=== PATIENT | male | born 1950 | race Caucasian/White ===

== ENCOUNTER 2018-09-27 11:37 | Inpatient (IN) | payer OTHER | END 2018-09-29 17:15 | disposition home or self-care (01) | LOC: EDH 11:37 → 3CH 09-28 19:14 → EDHIP 16:30 ==

== ENCOUNTER 2019-05-21 18:07 | Inpatient (IN) | payer OTHER ==
[~2019-05-21 18:07] MED LIST: ATOR40TA71 PO; CHLO200T10 PO; DIVA500T52 PO; FISH1CAP63 PO; LEVO25TA54 PO; LISI-613 PO; LORA-192 PO; LORA1TAB3 PO; METO25TA6 PO; PANT40TA25 PO; QUET400T12 PO; RIVA20TA PO; TAMS0.4C32 PO; TRAZ-221 PO
[2019-05-21 18:35] LABS: BASOPHILS % (AUTO) 0.7 % (0.0-5.0); EOSINOPHILS % (AUTO) 1.5 % (0.0-8.0); HEMATOCRIT 38.2 % (42-54); MEAN CORPUSCULAR HEMOGLOBIN 32.7 pg (27.0-33.0); MEAN CORPUSCULAR HGB CONC 34.1 g/dL (32.0-36.0); MONOCYTES % (AUTO) 13.2 % (3.0-13.0); NEUTROPHILS % (AUTO) 64.6 % (40.0-77.0); NUCLEATED RED BLOOD CELLS 0.1 % (0.0-0.19); PLATELET COUNT (AUTO) 115 K/uL (130-400); RED BLOOD CELL COUNT(AUTO) 3.98 MIL/uL (4.50-6.20); RED CELL DISTRIBUTION WIDTH 13.5 % (11.0-15.5); WHITE BLOOD COUNT (AUTO) 5.9 K/uL (4.8-10.8)
[2019-05-21 18:42] LABS: CREATININE 1.3 mg/dL (0.5-1.5); POTASSIUM 3.9 mmol/L (3.5-5.1)
[2019-05-21 18:44] LABS: INR 1.05 (0.85-1.15); PARTIAL THROMBOPLASTIN TIME 28.6 SEC (26.3-35.5)
[2019-05-21 18:47] LABS: ALBUMIN 3.7 g/dL (3.5-5.0); BILIRUBIN,TOTAL 0.5 mg/dL (0.2-1.0)
[2019-05-21 18:55] LABS: B-TYPE NATRIURETIC PEPTIDE 14 pg/mL (0-100)
[2019-05-21 18:57] LABS: PLATELET MORPHOLOGY COMMENT SLIGHTLY DECREASED
[2019-05-21] MEDS ORDERED: ACETAMINOPHEN 325 MG TAB PO PRN (21:00)
[2019-05-21] MEDS ORDERED: ONDANSETRON 4 MG TABLET PO PRN (21:00)
[2019-05-21 22:00] LABS: APPEARANCE,URINE Clear (CLEAR); BILIRUBIN,URINE Negative (NEGATIVE); COLOR,URINE Yellow (YELLOW); GLUCOSE, URINE (UA) Negative (NEGATIVE); KETONES,URINE Negative (NEGATIVE); LEUKOCYTE ESTERASE ,URINE Negative (NEGATIVE); NITRATE,URINE Negative (NEGATIVE); OCCULT BLOOD,URINE Negative (NEGATIVE); PROTEIN,URINE Negative (NEGATIVE)
[2019-05-22 02:39] LABS: CREATINE KINASE, TOTAL 208 U/L (21-232); MYOGLOBIN 74 ng/mL (10-92); TROPONIN I < 0.04 ng/mL (0.00-0.06)
[2019-05-22 07:00] LABS: BASOPHILS % (AUTO) 0.9 % (0.0-5.0); EOSINOPHILS % (AUTO) 2.3 % (0.0-8.0); HEMATOCRIT 39.3 % (42-54); LYMPHOCYTES % (AUTO) 22.7 % (21.0-51.0); MEAN CORPUSCULAR HEMOGLOBIN 32.8 pg (27.0-33.0); MEAN CORPUSCULAR HGB CONC 34.4 g/dL (32.0-36.0); MEAN CORPUSCULAR VOLUME 95.3 fL (79-99); MONOCYTES % (AUTO) 13.6 % (3.0-13.0); NEUTROPHILS % (AUTO) 60.5 % (40.0-77.0); PLATELET COUNT (AUTO) 117 K/uL (130-400); RED BLOOD CELL COUNT(AUTO) 4.12 MIL/uL (4.50-6.20); RED CELL DISTRIBUTION WIDTH 13.5 % (11.0-15.5); WHITE BLOOD COUNT (AUTO) 5.1 K/uL (4.8-10.8)
[2019-05-22 07:07] LABS: CREATININE 1.2 mg/dL (0.5-1.5); POTASSIUM 4.4 mmol/L (3.5-5.1)
[2019-05-22 07:14] LABS: ALBUMIN 3.8 g/dL (3.5-5.0); BILIRUBIN,TOTAL 0.6 mg/dL (0.2-1.0); MAGNESIUM 2.1 mg/dL (1.80-2.40); TOTAL PROTEIN, SERUM 7.3 g/dL (6.0-8.3)
--- NOTE | 2019-05-22 11:24 | NUR ---
DCP: HOME SW met with pt who states he lives alone, daughter Ирина Garridoz [phone] is er contact. Pt reports he is independent of all ADLS, has provider 4hrs daily for assist with meal prep, home management, med box prep, uses walker prn, no HH. Pt states insurance covers transport to MD appts. Denies dc needs. Plan is home at sc Addendum: 05/22/19 at 1138 by KRISTEN SOTO SS Amended: Links added.
--- NOTE | 2019-05-22 11:51 | NUR ---
TRIGGER RECEIVED. Pt WITH POSSIBLE CVA DIAGNOSIS. NIHSS SCORE OF 0 AT THIS TIME. PT EATING INDEPENDENTLY AND COMMUNICATING WANTS AND NEEDS. NO CONCERNS AT THIS TIME. Pt WITH NO OVERT S/S OF ASPIRATION AT THIS TIME. SKILLED SPEECH THERAPY IS NOT WARRANTED AT THIS TIME. Addendum: 05/22/19 at 1155 by NIKKI CRANE, [facility] Amended: Links added.
[2019-05-22 19:16] LABS: CREATINE KINASE, TOTAL 255 U/L (21-232); MYOGLOBIN 63 ng/mL (10-92); TROPONIN I < 0.04 ng/mL (0.00-0.06)
== END 2019-05-22 19:19 | disposition left against medical advice (07) | DRG 312 ==
LOC: EDH 18:07 → EDHIP 20:10
PROVIDERS: ADMIT Internal Medicine Infectious Disease; ATTEND Internal Medicine Infectious Disease
DX: I95.2 Hypotension due to drugs (principal); R42 Dizziness and giddiness; Z53.29 Procedure and treatment not carried out because of patient's decision for other reasons; E66.9 Obesity, unspecified; I10 Essential (primary) hypertension; F20.9 Schizophrenia, unspecified; F31.9 Bipolar disorder, unspecified; I48.0 Paroxysmal atrial fibrillation; E03.9 Hypothyroidism, unspecified; E78.5 Hyperlipidemia, unspecified; Z79.899 Other long term (current) drug therapy; Z88.0 Allergy status to penicillin; Z86.73 Personal history of transient ischemic attack (TIA), and cerebral infarction without residual deficits
CPT/HCPCS: 36415; 70450; 70551; 71045; 80053; 81003; 82550; 83690; 83735; 83874; 83880; 84443; 84484; 85025; 85610; 85730; 87804; 93005; 99291; G0378

== ENCOUNTER 2019-07-23 18:07 | Inpatient (IN) | payer OTHER ==
[~2019-07-23 18:07] MED LIST changes: -TRAZ-221 PO; +TRAZ-258 PO
[2019-07-23 18:48] LABS: BASOPHILS % (AUTO) 0.5 % (0.0-5.0); EOSINOPHILS % (AUTO) 1.1 % (0.0-8.0); HEMATOCRIT 38.1 % (42-54); LYMPHOCYTES % (AUTO) 18.3 % (21.0-51.0); MEAN CORPUSCULAR HEMOGLOBIN 32.2 pg (27.0-33.0); MEAN CORPUSCULAR HGB CONC 33.6 g/dL (32.0-36.0); MEAN CORPUSCULAR VOLUME 95.7 fL (79-99); NEUTROPHILS % (AUTO) 68.1 % (40.0-77.0); PLATELET COUNT (AUTO) 138 K/uL (130-400); RED BLOOD CELL COUNT(AUTO) 3.98 MIL/uL (4.50-6.20); RED CELL DISTRIBUTION WIDTH 13.5 % (11.0-15.5); WHITE BLOOD COUNT (AUTO) 6.2 K/uL (4.8-10.8)
[2019-07-23 19:06] LABS: CARBON DIOXIDE 26 mmol/L (21-32); CHLORIDE 103 mmol/L (101-111); CREATININE 1.9 mg/dL (0.5-1.5); GLOMERULAR FILTR. RATE CALC 37 mL/min (>60); GLUCOSE,RANDOM 105 mg/dL (70-105); POTASSIUM 4.4 mmol/L (3.5-5.1); SODIUM SERUM 140 mmol/L (136-145); UREA NITROGEN, BLOOD 27 mg/dL (7-18)
[2019-07-23] MEDS ORDERED: SODIUM CHLORIDE 0.9% 500ML 500 ML IV ONE (19:08)
[2019-07-23 19:13] LABS: ALANINE AMINOTRANSFERASE 35 U/L (12-78); ASPARTATE AMINOTRANSFERASE 36 U/L (10-37); BILIRUBIN,TOTAL 0.5 mg/dL (0.2-1.0); TOTAL PROTEIN, SERUM 7.4 g/dL (6.0-8.3)
[2019-07-23] MEDS ORDERED: DILTIAZEM HCL 125 MG/25 ML VIAL IV ONE (19:14)
[2019-07-23] MEDS ORDERED: SODIUM CHLORIDE 0.9% 100 ML IV ONE (19:14)
[2019-07-23 19:15] LABS: ACETAMINOPHEN < 1 mcg/mL (10-29)
[2019-07-23 19:20] LABS: INR 1.2 (0.85-1.15); PROTHROMBIN TIME 12.5 SEC (9.6-11.6)
[2019-07-23 19:35] LABS: ALCOHOL, BLOOD < 3 mg/dL (0-10)
[2019-07-23 19:37] LABS: SALICYLATE < 2.8 mg/dL (2.8-20.0)
[2019-07-23 19:55] LABS: APPEARANCE,URINE Clear (CLEAR); BILIRUBIN,URINE Negative (NEGATIVE); COLOR,URINE Yellow (YELLOW); GLUCOSE, URINE (UA) Negative (NEGATIVE); KETONES,URINE Negative (NEGATIVE); LEUKOCYTE ESTERASE ,URINE Negative (NEGATIVE); NITRATE,URINE Negative (NEGATIVE); OCCULT BLOOD,URINE Negative (NEGATIVE); PH,URINE 5.5 (5.0-8.0); PROTEIN,URINE Negative (NEGATIVE)
[2019-07-23 20:03] LABS: AMPHET/METH SCREEN,URINE NEGATIVE (NEGATIVE); BARBITURATE SCREEN, URINE NEGATIVE (NEGATIVE); BENZODIAZEPINES SCREEN,URINE NEGATIVE (NEGATIVE); CANNABINOID SCREEN,URINE NEGATIVE (NEGATIVE); COCAINE SCREEN,URINE NEGATIVE (NEGATIVE); OPIATE SCREEN,URINE NEGATIVE (NEGATIVE); PHENCYCLIDINE SCREEN,URINE NEGATIVE (NEGATIVE)
[2019-07-23] MEDS ORDERED: DILTIAZEM 125MG+100 ML NS 125 ML IV SCH (21:15)
[2019-07-24 04:58] LABS: BASOPHILS % (AUTO) 0.7 % (0.0-5.0); EOSINOPHILS % (AUTO) 2.7 % (0.0-8.0); HEMATOCRIT 38.6 % (42-54); LYMPHOCYTES % (AUTO) 30.7 % (21.0-51.0); MEAN CORPUSCULAR HEMOGLOBIN 32.1 pg (27.0-33.0); MEAN CORPUSCULAR HGB CONC 33.4 g/dL (32.0-36.0); MONOCYTES % (AUTO) 12.7 % (3.0-13.0); NEUTROPHILS % (AUTO) 52.3 % (40.0-77.0); PLATELET COUNT (AUTO) 124 K/uL (130-400); RED BLOOD CELL COUNT(AUTO) 4.02 MIL/uL (4.50-6.20); RED CELL DISTRIBUTION WIDTH 13.6 % (11.0-15.5); WHITE BLOOD COUNT (AUTO) 4.4 K/uL (4.8-10.8)
[2019-07-24 05:04] LABS: CREATININE 1.5 mg/dL (0.5-1.5)
[2019-07-24 05:09] LABS: ALBUMIN 3.9 g/dL (3.5-5.0); BILIRUBIN,TOTAL 0.6 mg/dL (0.2-1.0); TOTAL PROTEIN, SERUM 7.4 g/dL (6.0-8.3)
[2019-07-24 05:12] LABS: B-TYPE NATRIURETIC PEPTIDE 17 pg/mL (0-100)
== END 2019-07-24 10:29 | disposition left against medical advice (07) | DRG 310 ==
LOC: EDH 18:07 → EDHIP 20:27
PROVIDERS: ADMIT Internal Medicine Infectious Disease; ATTEND Internal Medicine Infectious Disease
DX: I48.3 Typical atrial flutter (principal); F31.9 Bipolar disorder, unspecified; E03.9 Hypothyroidism, unspecified; G20 Parkinson's disease; E78.00 Pure hypercholesterolemia, unspecified; I10 Essential (primary) hypertension; E11.9 Type 2 diabetes mellitus without complications; I25.10 Atherosclerotic heart disease of native coronary artery without angina pectoris; I95.9 Hypotension, unspecified; Z88.0 Allergy status to penicillin; Z85.46 Personal history of malignant neoplasm of prostate; Z53.29 Procedure and treatment not carried out because of patient's decision for other reasons
CPT/HCPCS: 36415; 71045; 80053; 80305; 81003; 82550; 83735; 83880; 84484; 85025; 85610; 85730; 93005; G0378; G0480; G0481; J3490; J7040

== ENCOUNTER 2019-12-04 13:59 | Inpatient (IN) | payer OTHER ==
[~2019-12-04] VITALS: Ht 185.4 cm; Wt 108.8 kg
[~2019-12-04 13:59] MED LIST changes: -PANT40TA25 PO; +PANT40TA54 PO
[2019-12-04] MEDS ORDERED: METOPROLOL TARTRATE 1 MG/ML 5ML VIAL IV ONE (14:27)
[2019-12-04] MEDS ORDERED: ASPIRIN 325 MG TABLET ONE (14:27)
[2019-12-04 14:43] LABS: BASOPHILS % (AUTO) 0.5 % (0.0-5.0); EOSINOPHILS % (AUTO) 0.1 % (0.0-8.0); HEMATOCRIT 42.8 % (42-54); LYMPHOCYTES % (AUTO) 11.5 % (21.0-51.0); MEAN CORPUSCULAR HEMOGLOBIN 32.7 pg (27.0-33.0); MEAN CORPUSCULAR HGB CONC 34.1 g/dL (32.0-36.0); MEAN CORPUSCULAR VOLUME 95.7 fL (79-99); MONOCYTES % (AUTO) 12.8 % (3.0-13.0); NEUTROPHILS % (AUTO) 74.6 % (40.0-77.0); PLATELET COUNT (AUTO) 158 K/uL (130-400); RED BLOOD CELL COUNT(AUTO) 4.47 MIL/uL (4.50-6.20); RED CELL DISTRIBUTION WIDTH 12.9 % (11.0-15.5); WHITE BLOOD COUNT (AUTO) 7.3 K/uL (4.8-10.8)
[2019-12-04 14:57] LABS: CREATININE 1.6 mg/dL (0.5-1.5); INR 1.03 (0.85-1.15); PARTIAL THROMBOPLASTIN TIME 29.1 SEC (26.3-35.5); POTASSIUM 4.2 mmol/L (3.5-5.1); PROTHROMBIN TIME 11.1 SEC (9.6-11.6)
[2019-12-04 15:12] LABS: B-TYPE NATRIURETIC PEPTIDE 106 pg/mL (0-100)
[2019-12-04 15:20] LABS: BILIRUBIN,TOTAL 1.1 mg/dL (0.2-1.0); TOTAL PROTEIN, SERUM 8.6 g/dL (6.0-8.3)
[2019-12-04] MEDS ORDERED: SODIUM CHLORIDE 0.9% 100 ML IV ONE (15:37)
[2019-12-04] MEDS ORDERED: DILTIAZEM HCL 5 MG/ML 10 ML VIAL IV ONE (15:38)
[2019-12-04] MEDS ORDERED: DILTIAZEM HCL 125 MG/25 ML VIAL IV ONE (15:38)
[2019-12-04] MEDS ORDERED: DILTIAZEM HCL 125 MG/25 ML 125 MG in SODIUM CHLORIDE 0.9% 100 ML IV SCH (18:15)
[2019-12-05 06:29] LABS: BASOPHILS % (AUTO) 0.6 % (0.0-5.0); EOSINOPHILS % (AUTO) 0.9 % (0.0-8.0); HEMATOCRIT 41.4 % (42-54); LYMPHOCYTES % (AUTO) 21.6 % (21.0-51.0); MEAN CORPUSCULAR HEMOGLOBIN 32.3 pg (27.0-33.0); MEAN CORPUSCULAR HGB CONC 33.3 g/dL (32.0-36.0); MONOCYTES % (AUTO) 13.2 % (3.0-13.0); NEUTROPHILS % (AUTO) 63.4 % (40.0-77.0); PLATELET COUNT (AUTO) 145 K/uL (130-400); RED BLOOD CELL COUNT(AUTO) 4.27 MIL/uL (4.50-6.20); RED CELL DISTRIBUTION WIDTH 13.1 % (11.0-15.5); WHITE BLOOD COUNT (AUTO) 6.6 K/uL (4.8-10.8)
[2019-12-05 06:44] LABS: CREATININE 1.3 mg/dL (0.5-1.5); MAGNESIUM 2.3 mg/dL (1.80-2.40)
[2019-12-05 08:43] LABS: THYROID STIMULATING HORMONE 1.5 uIU/mL (0.36-3.74)
--- NOTE | 2019-12-05 13:57 | NUR ---
DCP CM spoke to pt's daughter Shari Reddy [phone] discussed dc plans. Per daughter pt is mostly independent prior to admission, lives at home alone, sister Meredith Shelley lives close by. Pt has a provider 4hrs that is able to assist with meals, medications. Pt uses insurance for transportation. Denies any other equipments/services. Feels safe to go back home, sister Meredith able to assist with transportation as necessary. DC plan to home once stable. CM to cont to follow up.
[2019-12-05] MEDS ORDERED: MECLIZINE HCL 25 MG TABLET PO PRN (15:15)
[2019-12-05 15:45] VITALS: BP 157/64
--- NOTE | 2019-12-05 17:04 | NUR ---
HISTORY OF LEFT EYE SURGERY Addendum: 12/05/19 at 1709 by GLADYS FOX RN RN Amended: Links added.
[2019-12-05] MEDS: METOPROLOL TARTRATE 25 MG TAB PO SCH (17:20)
[2019-12-05 19:34] VITALS: BP 163/85
[2019-12-05] MEDS: DIVALPROEX SODIUM 250 MG TABLET.DR PO SCH (20:29)
[2019-12-05] MEDS: QUETIAPINE FUMARATE 100 MG TAB PO SCH (20:29)
[2019-12-05] MEDS: TRAZODONE HCL 100 MG TABLET PO SCH (20:29)
[2019-12-06 04:00] VITALS: BP 113/62
[2019-12-06] MEDS: LEVOTHYROXINE 25 MCG TABLET PO SCH (05:41)
[2019-12-06 08:00] VITALS: BP 118/55
[2019-12-06] MEDS: FUROSEMIDE 20 MG TABLET PO SCH (08:42)
[2019-12-06] MEDS: TAMSULOSIN HCL 0.4 MG CAP.ER.24H PO SCH (08:42)
[2019-12-06] MEDS: DIVALPROEX SODIUM 250 MG TABLET.DR PO SCH ×2 (08:42→20:40)
[2019-12-06] MEDS: RIVAROXABAN 20 MG TABLET PO SCH (08:43)
[2019-12-06] MEDS: METOPROLOL TARTRATE 25 MG TAB PO SCH ×2 (08:46→17:20)
[2019-12-06] MEDS: SILVER SULFADIAZINE CREAM 50 GM TP SCH (09:00)
--- NOTE | 2019-12-06 09:53 | NUR ---
SPOKE TO PT AT BEDSIDE -- ON RAMBLING AND INCOHERENT. STATES HIS MEDS ARE GIVEN TO HIM BY [facility]. HAS NOT SEEN A PSYCHIATRIST FOR MANY YESAR. STATES HIS SISTER LIVES IN [facility] BUT THEY DO NOT GET ALONG, AND SHE TELL HIM HE DOES NOT GET ANY PENSION.?? STATES THAT HE HAS NOT SEEN HIS DUAGHTER FOR ABOUT TWO YEARS, BUT TALKS TO HER AOBUT ONCE WEEKLY. CALL TO DR. MENJIVAR. ORDER FOR PSYCHIATRIST CONSULT AND IF RECOMMENDS REFERRAL TO [facility] [place] Addendum: 12/06/19 at 0956 by ED VALADEZ RN Amended: Links added.
[2019-12-06 12:00] VITALS: BP 104/86
[2019-12-06] MEDS: ATORVASTATIN CALCIUM 40 MG TABLET PO SCH (12:14)
--- NOTE | 2019-12-06 15:23 | NUR ---
1510 patient not able to sign IM letter, he is confused at this time and is on a 1:1 sitter. I tried calling sister Meredith Shelley at [phone] but no answer at this time. I will keep trying to reach sister to get telephone consent for IM Letter.
[2019-12-06 16:00] VITALS: BP 110/54
[2019-12-06 20:00] VITALS: BP 119/74
[2019-12-06] MEDS: TRAZODONE HCL 100 MG TABLET PO SCH (20:40)
[2019-12-06] MEDS: QUETIAPINE FUMARATE 100 MG TAB PO SCH (20:40)
[2019-12-06 23:47] VITALS: BP 117/62
[2019-12-07 04:00] VITALS: BP 109/58
--- NOTE | 2019-12-07 05:05 | NUR ---
PATIENT UPDATE Pt pending acceptance to [facility], face sheet faxed to the Unit as per request. Dr. Navarrete consulted during the daytime, message left, no response received. I called Dr. Navarrete last night on his cell phone, made him aware about the consult and the pending transfer to [facility] [place]. Stated that he will come see the patient in the am. Ammonia level and urine studies to be done as per the request of [facility] before transfer. Patient running normal sinus rhythm bet 55 to low 60's, no ectopies noted. Bipolar meds administered, pt slept better overnight, no complaints of pain.
[2019-12-07] MEDS: LEVOTHYROXINE 25 MCG TABLET PO SCH (05:40)
[2019-12-07 05:58] LABS: APPEARANCE,URINE Clear (CLEAR); BILIRUBIN,URINE Negative (NEGATIVE); COLOR,URINE Dark Yellow (YELLOW); GLUCOSE, URINE (UA) Negative (NEGATIVE); KETONES,URINE Negative (NEGATIVE); LEUKOCYTE ESTERASE ,URINE Negative (NEGATIVE); NITRATE,URINE Negative (NEGATIVE); OCCULT BLOOD,URINE Negative (NEGATIVE); PH,URINE 5.5 (5.0-8.0); PROTEIN,URINE Negative (NEGATIVE)
[2019-12-07 06:06] LABS: AMPHET/METH SCREEN,URINE NEGATIVE (NEGATIVE); BARBITURATE SCREEN, URINE NEGATIVE (NEGATIVE); BENZODIAZEPINES SCREEN,URINE NEGATIVE (NEGATIVE); CANNABINOID SCREEN,URINE NEGATIVE (NEGATIVE); COCAINE SCREEN,URINE NEGATIVE (NEGATIVE); OPIATE SCREEN,URINE NEGATIVE (NEGATIVE); PHENCYCLIDINE SCREEN,URINE NEGATIVE (NEGATIVE)
--- NOTE | 2019-12-07 07:30 | NUR ---
NOTE AAOX3. DENIES PAIN OR DISCOMFORT. CAME IN WITH A FIB RVR. HAS BEEN STABLE, NO DISTRESS OR CHEST PAIN. HE'S ON TELEMETRY MONITORING WITH RHYTHM CHANGED TO NSR OR SB. VS STABLE. HE IS ON XARELTO AND METOPROLOL. HE IS ON ONE TO ONE SITTER BECAUSE OF H/O BIPOLAR DISORDER AND PATIENT HAS BEEN RESTLESS AND WONDERING AROUND THE FELTON WITH VISITS INTO OTHER PATIENT'S ROOMS. ALSO REPORTS ALCOHOL ABUSE SO HE IS ON ETOH PROTOCOL.
[2019-12-07 07:57] VITALS: BP 124/72
[2019-12-07] MEDS: SILVER SULFADIAZINE CREAM 50 GM TP SCH (09:00)
[2019-12-07] MEDS: RIVAROXABAN 20 MG TABLET PO SCH (09:11)
[2019-12-07] MEDS: FUROSEMIDE 20 MG TABLET PO SCH (09:11)
[2019-12-07] MEDS: TAMSULOSIN HCL 0.4 MG CAP.ER.24H PO SCH (09:11)
[2019-12-07] MEDS: ATORVASTATIN CALCIUM 40 MG TABLET PO SCH (09:11)
[2019-12-07] MEDS: METOPROLOL TARTRATE 25 MG TAB PO SCH ×2 (09:12→21:24)
[2019-12-07] MEDS: DIVALPROEX SODIUM 250 MG TABLET.DR PO SCH ×2 (09:12→21:24)
[2019-12-07 11:32] VITALS: BP 111/63
--- NOTE | 2019-12-07 13:00 | NUR ---
NOTE DR WHITLOCK CAME TO SEE PATIENT A CONSULT. REFER TO CHART FOR DETAILS. CASE MANAGEMENT WORKING ON POSSIBLE TRANSFER TO INPATIENT BEHAVIORAL UNIT. SITTER REMAINS AT HIS SIDE. PATIENT REMAINS STABLE, NO DISTRESS.
--- NOTE | 2019-12-07 15:50 | NUR ---
cm note spoke to dr perez and updated that pt is out of network with [facility] sepedy laughlin and ok with referral to [facility] or [facility]. spoke to pt and in agreement to [facility] due to it is closer for him. referral faxed to [facility] pending approval. spoke to gilmar and received referral.
[2019-12-07 16:00] VITALS: BP 127/95
--- NOTE | 2019-12-07 16:29 | NUR ---
7517 spoke to patient's sister Meredith Shelley([phone]) Via telephone and received oral consent for IM Letter since patient is confused at this time. I faxed IM Letter to 1075 and placed in chart under consent tab.
[2019-12-07 19:30] VITALS: BP 133/65
[2019-12-07] MEDS: RISPERIDONE 1 MG TABLET PO SCH (21:25)
[2019-12-07] MEDS: TRAZODONE HCL 100 MG TABLET PO SCH (21:25)
[2019-12-07] MEDS: QUETIAPINE FUMARATE 100 MG TAB PO SCH (21:25)
[2019-12-07 23:56] VITALS: BP 122/61
--- NOTE | 2019-12-08 01:48 | NUR ---
PATIENT UPDATE Patient started on the new regimen started by Dr. Navarrete, pt had been sleeping since 2199. Vital signs stable. Was oriented x 1, not oriented to place and time, reoriented. Still having those arm tremors when both arms are extended, more on the rt than the left. Pt aware of the plan for him to get transferred to [facility] for continuity of care and stated that he's ok with it. Running normal sinus rhythm with heart rate bet 50's to 60's, no ectopies noted. Continues with the one to one sitter a the bedside . Pt tends to wander around if left by himself and goes inside other pt's rooms.
--- NOTE | 2019-12-08 02:55 | NUR ---
TRANSFER OF CARE Report given to Kirti CHAUDHARI who will assume care of patient.
[2019-12-08 04:00] VITALS: BP 129/55
[2019-12-08] MEDS: LEVOTHYROXINE 25 MCG TABLET PO SCH (06:24)
[2019-12-08 07:36] VITALS: BP 121/64
--- NOTE | 2019-12-08 08:00 | NUR ---
ASSESSMENT PT IS AWAKE AND ALERT. EATING BREAKFAST DENIES CP DENIES NV DENIES SOB. BREATHING PATTERN IS EVEN AND UNLABORED. NO VISIBLE SIGNS OF DISTRESS NOTED, CALL LIGHT WITHIN REACH. 1:1 SITTER AT BEDSIDE.
[2019-12-08] MEDS: RIVAROXABAN 20 MG TABLET PO SCH (08:15)
[2019-12-08] MEDS: ATORVASTATIN CALCIUM 40 MG TABLET PO SCH (08:15)
[2019-12-08] MEDS: TAMSULOSIN HCL 0.4 MG CAP.ER.24H PO SCH (08:15)
[2019-12-08] MEDS: FUROSEMIDE 20 MG TABLET PO SCH (08:16)
[2019-12-08] MEDS: RISPERIDONE 1 MG TABLET PO SCH (08:16)
[2019-12-08] MEDS: DIVALPROEX SODIUM 250 MG TABLET.DR PO SCH (08:16)
[2019-12-08] MEDS: METOPROLOL TARTRATE 25 MG TAB PO SCH (08:17)
[2019-12-08] MEDS: SILVER SULFADIAZINE CREAM 50 GM TP SCH (08:17)
--- NOTE | 2019-12-08 09:56 | NUR ---
cm note call made to [facility] and spoke to gilmar at intake and states they did the peer to peer with Dr taylor, but will await for verification of meds, especially the cardiac meds, prior to accepting pt. negrita tsang primary nurse, to obtain med reconciliation in order to continue process.
--- NOTE | 2019-12-08 10:02 | NUR ---
cm note received call from sister luis carlos novak, and per pt Mr hendricksonarely to discuss information with her. informed luis carlos that pt is currently being assessed for [facility]. pending approval. verbalizes understanding,
[2019-12-08 12:00] VITALS: BP 128/70
--- NOTE | 2019-12-08 14:43 | NUR ---
REPORT CALLED TO ANH JOY RN RECEIVED REPORT. IV REMOVED AND TELE PACK REMOVED.
--- NOTE | 2019-12-08 15:00 | NUR ---
cm note call received from sister ms novak, updated on plan to to transfer to [facility] today.
--- NOTE | 2019-12-08 18:53 | NUR ---
cm note call made to [facility] , and spoke to dispatcher Hoa and states pt is on list for nonemergency transfer to [facility]. unable to provide an eta. but states ems will come to [facility] pt when ambulance available.
[2019-12-08 19:30] VITALS: BP 95/56
--- NOTE | 2019-12-08 21:57 | NUR ---
DISCHARGE NOTES: Pt alert and very responsive,talkative but confused. Transferred to [facility]. Nurse to nurse report done by day shift. Able to amb with some guarding. VS are as follow: BP:96/56 ; HR: 76; RR: 19 ; Temp: 98.5 oral and O2Sat at 98%,room air. Discharge via stretcher via EMS with MOT form. No unusual changes noted. Distress / discomfort not noted. No untoward incident happened.
== END 2019-12-08 21:57 | disposition home or self-care (01) | DRG 885 ==
LOC: EDH 13:59 → EDHIP 17:13 → OBSVTOIN 17:13 → 4CH 12-05 15:59
PROVIDERS: ADMIT Internal Medicine Infectious Disease; ATTEND Internal Medicine Infectious Disease
DX: F20.89 Other schizophrenia (principal); G93.40 Encephalopathy, unspecified; M62.82 Rhabdomyolysis; I48.3 Typical atrial flutter; N18.3 Chronic kidney disease, stage 3 (moderate); I12.9 Hypertensive chronic kidney disease with stage 1 through stage 4 chronic kidney disease, or unspecified chronic kidney disease; F31.9 Bipolar disorder, unspecified; I48.0 Paroxysmal atrial fibrillation; E03.9 Hypothyroidism, unspecified; E66.9 Obesity, unspecified; E78.5 Hyperlipidemia, unspecified; R53.81 Other malaise; F10.10 Alcohol abuse, uncomplicated; F60.9 Personality disorder, unspecified; N40.0 Benign prostatic hyperplasia without lower urinary tract symptoms; K21.9 Gastro-esophageal reflux disease without esophagitis; G40.909 Epilepsy, unspecified, not intractable, without status epilepticus; Z68.31 Body mass index [BMI] 31.0-31.9, adult; Z88.0 Allergy status to penicillin; Z79.01 Long term (current) use of anticoagulants; Z91.19 Patient's noncompliance with other medical treatment and regimen
CPT/HCPCS: 36415; 70450; 71045; 80048; 80053; 80305; 81003; 82140; 82550; 82728; 82948; 83735; 83880; 84145; 84439; 84443; 84481; 84484; 85025; 85378; 85610; 85730; 86140; 87088; 93005; 93306; 93356; 97039; 99291; G0378; J3490

== ENCOUNTER 2019-12-16 14:24 | Emergency (ER) | payer OTHER ==
[2019-12-16 15:05] LABS: BASOPHILS % (AUTO) 0.3 % (0.0-5.0); EOSINOPHILS % (AUTO) 0.2 % (0.0-8.0); HEMATOCRIT 34.8 % (42-54); LYMPHOCYTES % (AUTO) 9.8 % (21.0-51.0); MEAN CORPUSCULAR HGB CONC 33.9 g/dL (32.0-36.0); MEAN CORPUSCULAR VOLUME 94.3 fL (79-99); MONOCYTES % (AUTO) 10.2 % (3.0-13.0); NEUTROPHILS % (AUTO) 79.2 % (40.0-77.0); PLATELET COUNT (AUTO) 136 K/uL (130-400); RED BLOOD CELL COUNT(AUTO) 3.69 MIL/uL (4.50-6.20); WHITE BLOOD COUNT (AUTO) 11.7 K/uL (4.8-10.8)
[2019-12-16 15:34] LABS: INR 1.16 (0.85-1.15); PARTIAL THROMBOPLASTIN TIME 35.2 SEC (26.3-35.5); PROTHROMBIN TIME 12.5 SEC (9.6-11.6)
[2019-12-16 15:37] LABS: CARBON DIOXIDE 27 mmol/L (21-32); CHLORIDE 104 mmol/L (101-111); CREATININE 2.1 mg/dL (0.5-1.5); GLOMERULAR FILTR. RATE CALC 33 mL/min (>60); GLUCOSE,RANDOM 101 mg/dL (70-105); POTASSIUM 3.7 mmol/L (3.5-5.1); SODIUM SERUM 141 mmol/L (136-145); UREA NITROGEN, BLOOD 43 mg/dL (7-18)
[2019-12-16] MEDS ORDERED: ACETAMINOPHEN 325 MG TAB ONE (15:48)
[2019-12-16 15:50] LABS: ALANINE AMINOTRANSFERASE 23 U/L (12-78); ALCOHOL, BLOOD < 3 mg/dL (0-10); ASPARTATE AMINOTRANSFERASE 28 U/L (10-37); BILIRUBIN,TOTAL 0.8 mg/dL (0.2-1.0); TOTAL PROTEIN, SERUM 6.9 g/dL (6.0-8.3)
[2019-12-16 15:56] LABS: CREATINE KINASE, TOTAL 608 U/L (21-232)
== END 2019-12-16 17:33 | disposition home or self-care (01) ==
LOC: EDH 14:24
DX: N28.9 Disorder of kidney and ureter, unspecified (principal); E86.0 Dehydration; F31.9 Bipolar disorder, unspecified; I25.10 Atherosclerotic heart disease of native coronary artery without angina pectoris; F32.9 Major depressive disorder, single episode, unspecified; E78.00 Pure hypercholesterolemia, unspecified; I10 Essential (primary) hypertension; E11.9 Type 2 diabetes mellitus without complications; G20 Parkinson's disease; E03.9 Hypothyroidism, unspecified; Z88.0 Allergy status to penicillin; W18.39XA Other fall on same level, initial encounter; Y93.01 Activity, walking, marching and hiking; Y92.89 Other specified places as the place of occurrence of the external cause; Y99.8 Other external cause status
CPT/HCPCS: 36415; 70450; 72125; 80053; 82550; 84484; 85025; 85610; 85730; 93005; 99285; G0480

== ENCOUNTER 2019-12-18 09:40 | Inpatient (IN) | payer OTHER ==
[~2019-12-18] VITALS: Ht 185.4 cm; Wt 108.7 kg
[2019-12-18 10:24] LABS: APPEARANCE,URINE Clear (CLEAR); BILIRUBIN,URINE Negative (NEGATIVE); COLOR,URINE Dark Yellow (YELLOW); GLUCOSE, URINE (UA) Negative (NEGATIVE); KETONES,URINE Negative (NEGATIVE); LEUKOCYTE ESTERASE ,URINE Negative (NEGATIVE); NITRATE,URINE Negative (NEGATIVE); OCCULT BLOOD,URINE Negative (NEGATIVE); PH,URINE 5.5 (5.0-8.0); PROTEIN,URINE Trace mg/dL (NEGATIVE)
[2019-12-18 10:25] LABS: BASOPHILS % (AUTO) 0.6 % (0.0-5.0); EOSINOPHILS % (AUTO) 1.2 % (0.0-8.0); HEMATOCRIT 32.9 % (42-54); LYMPHOCYTES % (AUTO) 19.2 % (21.0-51.0); MEAN CORPUSCULAR HEMOGLOBIN 32.4 pg (27.0-33.0); MEAN CORPUSCULAR HGB CONC 33.7 g/dL (32.0-36.0); MEAN CORPUSCULAR VOLUME 95.9 fL (79-99); MONOCYTES % (AUTO) 14.3 % (3.0-13.0); NEUTROPHILS % (AUTO) 64.3 % (40.0-77.0); PLATELET COUNT (AUTO) 115 K/uL (130-400); RED BLOOD CELL COUNT(AUTO) 3.43 MIL/uL (4.50-6.20)
[2019-12-18 10:31] LABS: AMPHET/METH SCREEN,URINE NEGATIVE (NEGATIVE); BARBITURATE SCREEN, URINE NEGATIVE (NEGATIVE); BENZODIAZEPINES SCREEN,URINE NEGATIVE (NEGATIVE); CANNABINOID SCREEN,URINE NEGATIVE (NEGATIVE); COCAINE SCREEN,URINE NEGATIVE (NEGATIVE); OPIATE SCREEN,URINE NEGATIVE (NEGATIVE); PHENCYCLIDINE SCREEN,URINE NEGATIVE (NEGATIVE)
[2019-12-18 10:34] LABS: INR 1.24 (0.85-1.15); PROTHROMBIN TIME 13.3 SEC (9.6-11.6)
[2019-12-18 10:42] LABS: BACTERIA,URINE None Seen /HPF (None Seen); RBC,URINE 0-1 /HPF (0-1); SQUAMOUS EPITHELIAL CELL,UR 0-2 /HPF (0-2); WBC,URINE 0-1 /HPF (0-1)
[2019-12-18 10:42] LABS: POTASSIUM 3.7 mmol/L (3.5-5.1)
[2019-12-18 11:04] LABS: ALBUMIN 3.5 g/dL (3.5-5.0); BILIRUBIN,TOTAL 0.7 mg/dL (0.2-1.0); TOTAL PROTEIN, SERUM 6.3 g/dL (6.0-8.3)
[2019-12-18] MEDS: SODIUM CHLORIDE 0.9% 1000ML 1,000 ML IV SCH (12:15)
[2019-12-18 15:26] VITALS: BP 134/89
[2019-12-18 19:20] VITALS: BP 144/64
[2019-12-18] MEDS ORDERED: LISI10TA7 PO (19:21)
[2019-12-18] MEDS ORDERED: ZOLP10TA2 PO (19:21)
[2019-12-18] MEDS ORDERED: QUET400T12 PO (19:21)
[2019-12-18] MEDS ORDERED: FURO20TA4 PO (19:21)
[2019-12-18] MEDS ORDERED: DIVA-78 PO (19:21)
[2019-12-18] MEDS: TAMSULOSIN HCL 0.4 MG CAP.ER.24H PO SCH (20:48)
[2019-12-18] MEDS: ATORVASTATIN CALCIUM 40 MG TABLET PO SCH (20:48)
[2019-12-18] MEDS: METOPROLOL TARTRATE 25 MG TAB PO SCH (20:48)
[2019-12-18 23:23] VITALS: BP 131/59
[2019-12-19] MEDS: LORAZEPAM 1 MG TABLET PO PRN (00:12)
[2019-12-19] MEDS: SODIUM CHLORIDE 0.9% 1000ML 1,000 ML IV SCH ×2 (01:58→20:06)
[2019-12-19 03:00] VITALS: BP 137/61
[2019-12-19 06:08] LABS: BASOPHILS % (AUTO) 0.8 % (0.0-5.0); MEAN CORPUSCULAR HEMOGLOBIN 32.9 pg (27.0-33.0); MEAN CORPUSCULAR HGB CONC 33.8 g/dL (32.0-36.0); MEAN CORPUSCULAR VOLUME 97.4 fL (79-99); MONOCYTES % (AUTO) 10.1 % (3.0-13.0); NEUTROPHILS % (AUTO) 63.9 % (40.0-77.0); PLATELET COUNT (AUTO) 140 K/uL (130-400); RED CELL DISTRIBUTION WIDTH 12.9 % (11.0-15.5); WHITE BLOOD COUNT (AUTO) 5.2 K/uL (4.8-10.8)
[2019-12-19] MEDS: LEVOTHYROXINE 25 MCG TABLET PO SCH (06:32)
[2019-12-19 06:39] LABS: ALBUMIN 3.7 g/dL (3.5-5.0); BILIRUBIN,TOTAL 0.7 mg/dL (0.2-1.0); CREATININE 1.1 mg/dL (0.5-1.5); MAGNESIUM 2.3 mg/dL (1.80-2.40); TOTAL PROTEIN, SERUM 6.8 g/dL (6.0-8.3)
[2019-12-19 08:00] VITALS: BP 146/72
--- NOTE | 2019-12-19 08:00 | NUR ---
AM ROUNDS: SITTER IN PLACE, PT. CONFUSED, TALKING AT RANDOM AND UNSTEADY ON FEET, KEEPS TRYING TO GET OUT OF BED AND IS UNABLE TO STAND STRAIGHT.BRUISE NOTED ON RT. BUTTOCK. LOWER LT. EXTREMITY RED WITH SOME SWELLING BUT HAS GOOD STRONG PULSES BILATERAL. TIPS OF GREATER TOES RED, STATES DO NOT HURT.
--- NOTE | 2019-12-19 08:00 | NUR ---
SHIFT ASSESSMENT.PEGGY I:[address], PT. CONFUSED AND TALKING AT RANDOM, MAKES NO SENSE.
[2019-12-19] MEDS: RIVAROXABAN 20 MG TABLET PO SCH (08:49)
[2019-12-19] MEDS: METOPROLOL TARTRATE 25 MG TAB PO SCH ×2 (08:49→20:06)
[2019-12-19 12:00] VITALS: BP 131/50
--- NOTE | 2019-12-19 12:00 | NUR ---
UNCHANGED, SANTOS BEEN TALKING ALL MORNING NON STOP ALL MORNING, CONSTANTLY IN AND OUT OF BED. HAS SHOWN NO SIGNS OF BEEN AGGRESSIVE , NEEDS CLOSE MONITORING HE CAN EASILY FALL AND OR PULL OUT LINES DUE TO BEING SO CONFUSED
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
[2019-12-19 16:00] VITALS: BP 166/70
--- NOTE | 2019-12-19 16:26 | NUR ---
2658 received telephone consent from sister Meredith Shelley for IM Letter. I faxed IM Letter to 1075 and placed in chart under consent tab.
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
[2019-12-19] MEDS: ATORVASTATIN CALCIUM 40 MG TABLET PO SCH (20:06)
[2019-12-19] MEDS: TAMSULOSIN HCL 0.4 MG CAP.ER.24H PO SCH (20:06)
[2019-12-19 21:04] VITALS: BP 134/62
[2019-12-19] MEDS ORDERED: LORAZEPAM 2 MG/ML 1 ML VIAL ONE (21:33)
[2019-12-19] MEDS ORDERED: HALOPERIDOL LACTATE 5 MG/ML VIAL IV SCH (21:45)
[2019-12-19] MEDS ORDERED: HALOPERIDOL LACTATE 5 MG/ML VIAL ONE (21:47)
[2019-12-20] VITALS (7 sets, daily range): BP systolic 120–151; BP diastolic 45–71
[2019-12-20] MEDS: LEVOTHYROXINE 25 MCG TABLET PO SCH (07:47)
[2019-12-20 07:56] LABS: HEMATOCRIT 36.9 % (42-54); MEAN CORPUSCULAR HGB CONC 32.8 g/dL (32.0-36.0); MEAN CORPUSCULAR VOLUME 97.6 fL (79-99); RED BLOOD CELL COUNT(AUTO) 3.78 MIL/uL (4.50-6.20); WHITE BLOOD COUNT (AUTO) 4.6 K/uL (4.8-10.8)
--- NOTE | 2019-12-20 07:59 | NUR ---
PATIENT UPDATE Pt received fr the previous shift talking nonstop about anything that he can think about, some flight of ideas. Reoriented x 3. Known hx of schizophrenia and bipolar disorder but pt not on his medications. Started acting before mn last night, combative and restless, iv pulled out, iv pump on the floor, primary iv tubing cut into two. Went ahead and called Dr. Amaro for orders, haldol 5 mg given slow iv push for the extreme agitation which started working after 30 minutes. Security was called , other staff from the floor came to help out when he started getting combative. With a 1:1 sitter at the bedside, will continue to monitor closely. Slept fairly overnight after the prn med was given.
[2019-12-20 08:19] LABS: POTASSIUM 4.3 mmol/L (3.5-5.1)
--- NOTE | 2019-12-20 08:32 | NUR ---
REC'D ORDER FOR MEDICALLY CLEAR FOR DISCHARGE TO PSYCH FACILITY. CALL TO OSCAR GEORGE TO INFORM PT READY TO BE SCREENED BY [facility] Addendum: 12/20/19 at 0833 by ED VALADEZ RN CM Amended: Links added.
[2019-12-20] MEDS: RIVAROXABAN 20 MG TABLET PO SCH (09:48)
[2019-12-20] MEDS: METOPROLOL TARTRATE 25 MG TAB PO SCH ×2 (09:49→19:38)
[2019-12-20] MEDS: SODIUM CHLORIDE 0.9% 1000ML 1,000 ML IV SCH ×2 (09:51→17:35)
--- NOTE | 2019-12-20 15:38 | NUR ---
jeff mcmullen evaluated the patient and the patient didn't meet the inpatient criteria. notified the case management about this
[2019-12-20] MEDS: TAMSULOSIN HCL 0.4 MG CAP.ER.24H PO SCH (19:38)
[2019-12-20] MEDS: ATORVASTATIN CALCIUM 40 MG TABLET PO SCH (19:39)
[2019-12-21] MEDS: LORAZEPAM 1 MG TABLET PO PRN (00:09)
[2019-12-21] MEDS: SODIUM CHLORIDE 0.9% 1000ML 1,000 ML IV SCH ×2 (01:30→21:35)
[2019-12-21 03:25] VITALS: BP 130/62
[2019-12-21] MEDS: LEVOTHYROXINE 25 MCG TABLET PO SCH (04:31)
[2019-12-21] MEDS: HALOPERIDOL 5 MG TABLET PO SCH ×2 (05:15→21:37)
--- NOTE | 2019-12-21 05:16 | NUR ---
texted doctor elvia about patient's pschycology consult for continued restlessness, bipolarity, and schizophrenia
[2019-12-21 08:00] VITALS: BP 120/58
--- NOTE | 2019-12-21 08:40 | NUR ---
DR. KAMLESH ARREGUIN DUMP TRUCK OPERATOR, M.S., CALLED TO 'S OFFICE TO CRISTELA MOORE REGARDING CONSULT AND REPORTS UNABLE TO REACH OFFICE STAFF TO CRISTELA MOORE.
--- NOTE | 2019-12-21 09:10 | NUR ---
REATTEMPT TO CRISTELA WHITLOCK FLAVORINGS COMPOUNDER, M.S., CALLED TO 'S OFFICE TO CRISTELA MOORE REGARDING CONSULT AND REPORTS UNABLE TO REACH OFFICE STAFF TO CRISTELA MOORE.
[2019-12-21] MEDS: METOPROLOL TARTRATE 25 MG TAB PO SCH ×2 (10:04→21:35)
[2019-12-21] MEDS: RIVAROXABAN 20 MG TABLET PO SCH (10:06)
--- NOTE | 2019-12-21 11:00 | NUR ---
DR. WHITLOCK CALLED MD CALLED TO CELLPHONE, NO ANSWER AT THIS TIME.
[2019-12-21 12:00] VITALS: BP 121/61
--- NOTE | 2019-12-21 16:30 | NUR ---
DR. KAMLESH MOORE HERE TO SEE PATIENT.
[2019-12-21 17:44] VITALS: BP 136/55
[2019-12-21] MEDS ORDERED: CLONAZEPAM 1 MG TABLET PO SCH (18:00)
[2019-12-21 19:15] VITALS: BP 150/64
[2019-12-21] MEDS ORDERED: QUETIAPINE FUMARATE 25 MG TAB PO SCH (21:00)
[2019-12-21] MEDS ORDERED: ACETAMINOPHEN 325 MG TAB ONE (21:30)
[2019-12-21] MEDS: TAMSULOSIN HCL 0.4 MG CAP.ER.24H PO SCH (21:34)
[2019-12-21] MEDS: CLONAZEPAM 1 MG TABLET PO SCH (21:34)
[2019-12-21] MEDS: ATORVASTATIN CALCIUM 40 MG TABLET PO SCH (21:35)
[2019-12-21 23:52] VITALS: BP 106/50
[2019-12-22] MEDS: LEVOTHYROXINE 25 MCG TABLET PO SCH (04:31)
[2019-12-22 05:00] VITALS: BP 134/56
[2019-12-22] MEDS: CLONAZEPAM 1 MG TABLET PO SCH (07:33)
[2019-12-22 08:00] VITALS: BP_SYST 116; BP_SYST 144; BP_DIAS 48; BP_DIAS 80
[2019-12-22] MEDS: METOPROLOL TARTRATE 25 MG TAB PO SCH ×2 (08:48→19:56)
[2019-12-22] MEDS: RIVAROXABAN 20 MG TABLET PO SCH (09:00)
--- NOTE | 2019-12-22 09:25 | NUR ---
[facility] NOTIFIED CALLED [facility] AND NOTIFIED PATIENT IS MEDICALLY CLEAR BY PRIMARY MD FOR EVALUATION BY [facility] COMMISSARY MANAGER.
[2019-12-22 11:00] VITALS: BP_SYST 119; BP_SYST 125; BP_DIAS 67; BP_DIAS 74
--- NOTE | 2019-12-22 12:05 | NUR ---
[facility] SPOKE TO SADIQ [phone] OF [facility] AND REPORTED TO ME THAT PATIENT DOES NOT MEET CRITERIA AND THAT PATIENT REPORTS HE LIVES HOME ALONE AND NEEDS HELP. SADIQ SCREENED PATIENT VIA TELEPHONE. INFORMED DR. RUELAS.
[2019-12-22] MEDS ORDERED: ACETAMINOPHEN 325 MG TAB PO PRN (12:30)
[2019-12-22] MEDS: LORAZEPAM 1 MG TABLET PO PRN (13:50)
[2019-12-22 16:00] VITALS: BP_SYST 138; BP_SYST 157; BP_DIAS 66; BP_DIAS 87
--- NOTE | 2019-12-22 18:14 | NUR ---
Antionette Cazares Spoke w Mr Chopra regarding Md recommendation for referral to [facility]. He mentions that he had been there before and would like to be referred to [facility] instead. Discussed differences in LOC and after much discussion he was in agreement w [facility] referral. He gave consent for CM to speak w his dtr Yanni Reddy, mentioning that he was currently not speaking w his sister. Call placed to Yanni. She is in agreement w referral to [facility]. Informed her CM would send referral and wait for evaluation and ins approval. She mentioned concern that insurance would not cover stay, she asked regarding other options as she does not feel that pt would be safe to return home alone. Discussed with her SNF and mentioned that this would also need Md order and ins approval. Telephone consent obtained for [facility] as well as [facility].
[2019-12-22 19:30] VITALS: BP 143/86
[2019-12-22] MEDS: ATORVASTATIN CALCIUM 40 MG TABLET PO SCH (19:56)
[2019-12-22] MEDS: TAMSULOSIN HCL 0.4 MG CAP.ER.24H PO SCH (19:56)
[2019-12-22] MEDS: SODIUM CHLORIDE 0.9% 1000ML 1,000 ML IV SCH ×2 (19:57→22:10)
[2019-12-22 20:01] VITALS: BP 143/86
[2019-12-22] MEDS ORDERED: QUETIAPINE FUMARATE 100 MG TAB PO SCH (21:00)
[2019-12-22] MEDS ORDERED: CLONAZEPAM 1 MG TABLET PO SCH (21:00)
[2019-12-23 00:10] VITALS: BP 134/64
[2019-12-23 04:14] VITALS: BP 129/59
[2019-12-23] MEDS: LEVOTHYROXINE 25 MCG TABLET PO SCH (06:40)
[2019-12-23] MEDS: RIVAROXABAN 20 MG TABLET PO SCH (07:42)
[2019-12-23] MEDS: LORAZEPAM 1 MG TABLET PO PRN (07:45)
[2019-12-23] MEDS: METOPROLOL TARTRATE 25 MG TAB PO SCH (07:46)
[2019-12-23 08:00] VITALS: BP 137/65
[2019-12-23] MEDS ORDERED: CLONAZEPAM 1 MG TABLET PO SCH (09:00)
--- NOTE | 2019-12-23 09:44 | NUR ---
[facility]: Referral/clinical faxed to [facility]. Call placed to intake @ [facility], melanie Gibson to discuss new referral. States faxed has been recieved and will have Md review. Provided Dr. Carmona # for 1:1 if needed. Per Arthur will call back after evaluation.
--- NOTE | 2019-12-23 10:24 | NUR ---
Antionette Cazares Received call back from states [facility] pt has been accepted. Primary nurse and charge nurse informed. Covid-19 form and MOT left in chart pending Md signatures. [facility] form left in chart as well.
--- NOTE | 2019-12-23 11:00 | NUR ---
DR. SURAJ WATSON MD SIGNED MOT, MEDICATION RECONCILIATION, AND COVID 19 ASSESSMENT FORM. STATES TO DISCHARGE PATIENT TO [facility] TODAY.
--- NOTE | 2019-12-23 11:55 | NUR ---
[facility] NURSE REPORT REPORT GIVEN TO [facility]. FAXED MEDICATIONS RECONCILIATION AND COVID 19 ASSESSMENT TO FACILITY.
--- NOTE | 2019-12-23 12:05 | NUR ---
[facility] CALLED [phone] TO REPORT PATIENT READY TO BE PICKED UP AND TRANSFERRED TO [facility].
--- NOTE | 2019-12-23 12:50 | NUR ---
DR. WHITLOCK CALLED CALLED MD TO REPORT PATIENT WILL BE TRANSFERRED TO [facility], NO ANSWER AT THIS TIME. LEFT VOICEMAIL WITH MY CALLBACK NUMBER.
== END 2019-12-23 12:55 | disposition home or self-care (01) | DRG 917 ==
LOC: EDH 09:40 → OBSVTOIN 11:30 → EDHIP 11:30 → 3AH 15:36
PROVIDERS: ADMIT Internal Medicine Infectious Disease; ATTEND Internal Medicine Infectious Disease
DX: T42.6X1A Poisoning by other antiepileptic and sedative-hypnotic drugs, accidental (unintentional), initial encounter (principal); G93.41 Metabolic encephalopathy; M62.82 Rhabdomyolysis; D69.6 Thrombocytopenia, unspecified; F31.9 Bipolar disorder, unspecified; F20.9 Schizophrenia, unspecified; E78.5 Hyperlipidemia, unspecified; I10 Essential (primary) hypertension; E03.9 Hypothyroidism, unspecified; I48.91 Unspecified atrial fibrillation; E86.0 Dehydration; Z60.2 Problems related to living alone; E78.00 Pure hypercholesterolemia, unspecified; E11.9 Type 2 diabetes mellitus without complications; G20 Parkinson's disease; G40.909 Epilepsy, unspecified, not intractable, without status epilepticus; F41.1 Generalized anxiety disorder; R53.81 Other malaise; E66.9 Obesity, unspecified; Z68.31 Body mass index [BMI] 31.0-31.9, adult; Z88.0 Allergy status to penicillin; Z79.899 Other long term (current) drug therapy; Y92.89 Other specified places as the place of occurrence of the external cause
CPT/HCPCS: 36415; 70450; 80048; 80053; 80305; 81001; 82550; 82948; 83735; 83874; 84484; 85025; 85027; 85610; 85730; 93005; 97039; 99291; G0378; J1630; J2060; J7030

== ENCOUNTER 2020-01-14 17:38 | Emergency (ER) | payer OTHER ==
[~2020-01-14 17:38] MED LIST changes: -CHLO200T10 PO; +DIVA-78 PO; -DIVA500T52 PO; -FISH1CAP63 PO; +FURO20TA4 PO; -LISI-613 PO; +LISI10TA7 PO; -LORA-192 PO; -PANT40TA54 PO; -TRAZ-258 PO; +ZOLP10TA2 PO
== END 2020-01-14 18:13 | disposition home or self-care (01) ==
LOC: EDH 17:38
DX: G47.00 Insomnia, unspecified (principal); E11.9 Type 2 diabetes mellitus without complications; E78.00 Pure hypercholesterolemia, unspecified; F32.9 Major depressive disorder, single episode, unspecified; I25.10 Atherosclerotic heart disease of native coronary artery without angina pectoris; I10 Essential (primary) hypertension; E03.9 Hypothyroidism, unspecified; G20 Parkinson's disease; Z88.0 Allergy status to penicillin

== ENCOUNTER 2020-02-01 15:35 | Emergency (ER) | payer OTHER ==
[2020-02-01] MEDS ORDERED: LORAZEPAM 0.5 MG TABLET ONE (16:19)
== END 2020-02-01 16:33 | disposition home or self-care (01) ==
LOC: EEVIPCON 15:35 → EDH 15:35
DX: F31.9 Bipolar disorder, unspecified (principal); G20 Parkinson's disease; I25.10 Atherosclerotic heart disease of native coronary artery without angina pectoris; E11.9 Type 2 diabetes mellitus without complications; I10 Essential (primary) hypertension; E03.9 Hypothyroidism, unspecified; E78.00 Pure hypercholesterolemia, unspecified; Z88.0 Allergy status to penicillin

== ENCOUNTER 2020-02-07 14:45 | Emergency (ER) | payer OTHER | END 2020-02-07 17:35 | disposition home or self-care (01) | LOC: EDH 14:45 | DX: L03.116 Cellulitis of left lower limb (principal); L03.115 Cellulitis of right lower limb; F31.9 Bipolar disorder, unspecified; I25.10 Atherosclerotic heart disease of native coronary artery without angina pectoris; E11.9 Type 2 diabetes mellitus without complications; E78.00 Pure hypercholesterolemia, unspecified; I10 Essential (primary) hypertension; E03.9 Hypothyroidism, unspecified; G20 Parkinson's disease; Z88.0 Allergy status to penicillin ==

== ENCOUNTER 2020-03-13 20:54 | Emergency (ER) | payer OTHER ==
[2020-03-13] MEDS ORDERED: SODIUM CHLORIDE 0.9% 500ML 500 ML IV ONE (20:55)
[2020-03-13 21:32] LABS: BASOPHILS % (AUTO) 0.4 % (0.0-5.0); EOSINOPHILS % (AUTO) 2.4 % (0.0-8.0); HEMATOCRIT 37.2 % (42-54); MEAN CORPUSCULAR HGB CONC 32.8 g/dL (32.0-36.0); MEAN CORPUSCULAR VOLUME 94.4 fL (79-99); MONOCYTES % (AUTO) 11.5 % (3.0-13.0); NEUTROPHILS % (AUTO) 61.3 % (40.0-77.0); PLATELET COUNT (AUTO) 158 K/uL (130-400); RED BLOOD CELL COUNT(AUTO) 3.94 MIL/uL (4.50-6.20); RED CELL DISTRIBUTION WIDTH 13.6 % (11.0-15.5); WHITE BLOOD COUNT (AUTO) 4.6 K/uL (4.8-10.8)
[2020-03-13 21:46] LABS: INR 0.98 (0.85-1.15); PARTIAL THROMBOPLASTIN TIME 23.8 SEC (26.3-35.5); PROTHROMBIN TIME 10.6 SEC (9.6-11.6)
[2020-03-13 21:47] LABS: CREATININE 1.1 mg/dL (0.5-1.5); POTASSIUM 3.8 mmol/L (3.5-5.1)
[2020-03-13 21:52] LABS: ALBUMIN 3.7 g/dL (3.5-5.0); BILIRUBIN,TOTAL 0.7 mg/dL (0.2-1.0); TOTAL PROTEIN, SERUM 7.1 g/dL (6.0-8.3)
== END 2020-03-14 00:06 | disposition home or self-care (01) ==
LOC: EDH 20:54
DX: R53.1 Weakness (principal); F31.9 Bipolar disorder, unspecified; I25.10 Atherosclerotic heart disease of native coronary artery without angina pectoris; E11.9 Type 2 diabetes mellitus without complications; I10 Essential (primary) hypertension; E78.00 Pure hypercholesterolemia, unspecified; E03.9 Hypothyroidism, unspecified; Z88.0 Allergy status to penicillin
CPT/HCPCS: 36415; 71045; 80053; 82550; 84484; 85025; 85610; 85730; 93005; 99285; J7040; 96360; 96361

== ENCOUNTER 2020-04-02 10:50 | Emergency (ER) | payer OTHER ==
[2020-04-02] MEDS ORDERED: SODIUM CHLORIDE 0.9% 1000ML 1,000 ML IV ONE (11:22)
[2020-04-02 11:30] LABS: BASOPHILS % (AUTO) 0.4 % (0.0-5.0); EOSINOPHILS % (AUTO) 2.5 % (0.0-8.0); HEMATOCRIT 36.7 % (42-54); LYMPHOCYTES % (AUTO) 14.6 % (21.0-51.0); MEAN CORPUSCULAR HEMOGLOBIN 30.6 pg (27.0-33.0); MEAN CORPUSCULAR HGB CONC 32.2 g/dL (32.0-36.0); MEAN CORPUSCULAR VOLUME 95.1 fL (79-99); MONOCYTES % (AUTO) 7.7 % (3.0-13.0); NEUTROPHILS % (AUTO) 74.6 % (40.0-77.0); PLATELET COUNT (AUTO) 153 K/uL (130-400); RED BLOOD CELL COUNT(AUTO) 3.86 MIL/uL (4.50-6.20); RED CELL DISTRIBUTION WIDTH 14.1 % (11.0-15.5); WHITE BLOOD COUNT (AUTO) 5.6 K/uL (4.8-10.8)
[2020-04-02 11:39] LABS: CREATININE 0.8 mg/dL (0.5-1.5); POTASSIUM 3.8 mmol/L (3.5-5.1)
[2020-04-02 12:05] LABS: APPEARANCE,URINE Clear (CLEAR); BILIRUBIN,URINE Negative (NEGATIVE); COLOR,URINE Yellow (YELLOW); GLUCOSE, URINE (UA) Negative (NEGATIVE); KETONES,URINE Negative (NEGATIVE); LEUKOCYTE ESTERASE ,URINE Negative (NEGATIVE); NITRATE,URINE Negative (NEGATIVE); OCCULT BLOOD,URINE Negative (NEGATIVE); PROTEIN,URINE Negative (NEGATIVE)
== END 2020-04-02 12:30 | disposition home or self-care (01) ==
LOC: EDH 10:50
DX: E86.0 Dehydration (principal); F31.9 Bipolar disorder, unspecified; E11.9 Type 2 diabetes mellitus without complications; Z88.0 Allergy status to penicillin; I25.10 Atherosclerotic heart disease of native coronary artery without angina pectoris; E03.9 Hypothyroidism, unspecified; E78.00 Pure hypercholesterolemia, unspecified; Z98.890 Other specified postprocedural states; Z87.891 Personal history of nicotine dependence
CPT/HCPCS: 36415; 71045; 80048; 81003; 82948; 85025; 96360; 99284; J7030

== ENCOUNTER 2020-05-15 10:52 | Emergency (ER) | payer OTHER | END 2020-05-15 11:14 | disposition home or self-care (01) | LOC: EDH 10:52 | DX: L03.116 Cellulitis of left lower limb (principal); I50.9 Heart failure, unspecified; E11.9 Type 2 diabetes mellitus without complications; F31.9 Bipolar disorder, unspecified; E78.00 Pure hypercholesterolemia, unspecified; E03.9 Hypothyroidism, unspecified; G20 Parkinson's disease; Z87.891 Personal history of nicotine dependence; Z88.0 Allergy status to penicillin ==

== ENCOUNTER 2020-07-24 00:18 | Emergency (ER) | payer OTHER ==
[2020-07-24] MEDS ORDERED: KETOROLAC TROMETHAMINE 30MG/ML ONE (02:37)
[2020-07-24] MEDS ORDERED: ORPHENADRINE CITRATE 30 MG/ML ML ONE (02:37)
== END 2020-07-24 03:23 | disposition home or self-care (01) ==
LOC: EDH 00:18
DX: G89.29 Other chronic pain (principal); M54.5 Low back pain; I25.10 Atherosclerotic heart disease of native coronary artery without angina pectoris; F32.9 Major depressive disorder, single episode, unspecified; E11.9 Type 2 diabetes mellitus without complications; E78.00 Pure hypercholesterolemia, unspecified; I10 Essential (primary) hypertension; E03.9 Hypothyroidism, unspecified; G20 Parkinson's disease; Z88.0 Allergy status to penicillin
CPT/HCPCS: 96372 ×2; 99284; J1885; J2360

== ENCOUNTER 2020-07-31 13:56 | Emergency (ER) | payer OTHER ==
[2020-07-31] MEDS ORDERED: KETOROLAC TROMETHAMINE 30MG/ML ONE (14:11)
[2020-07-31] MEDS ORDERED: CYCLOBENZAPRINE HCL 10 MG TABLET ONE (14:12)
[2020-07-31] MEDS ORDERED: HYDROCODONE/ACETAMINOPHEN 10/325 MG TAB ONE (14:12)
== END 2020-07-31 14:45 | disposition home or self-care (01) ==
LOC: EDH 13:56
DX: M54.42 Lumbago with sciatica, left side (principal); E11.9 Type 2 diabetes mellitus without complications; I10 Essential (primary) hypertension; I25.10 Atherosclerotic heart disease of native coronary artery without angina pectoris; F32.9 Major depressive disorder, single episode, unspecified; E78.00 Pure hypercholesterolemia, unspecified; G20 Parkinson's disease; Z87.891 Personal history of nicotine dependence; E03.9 Hypothyroidism, unspecified
CPT/HCPCS: 96372; 99283; J1885

== ENCOUNTER 2021-05-04 14:56 | Emergency (ER) | payer OTHER ==
[~2021-05-04] VITALS: Ht 185.4 cm; Wt 112.5 kg
[~2021-05-04 14:56] MED LIST changes: +LISI10TA24 PO; -LISI10TA7 PO; -QUET400T12 PO; +QUET400T13 PO
[2021-05-04 16:02] LABS: APPEARANCE,URINE CLOUDY (CLEAR); BILIRUBIN,URINE NEGATIVE (NEGATIVE); COLOR,URINE YELLOW (YELLOW); GLUCOSE, URINE (UA) NEGATIVE (NEGATIVE); KETONES,URINE NEGATIVE (NEGATIVE); LEUKOCYTE ESTERASE ,URINE MODERATE (NEGATIVE); NITRATE,URINE POSITIVE (NEGATIVE); OCCULT BLOOD,URINE SMALL (NEGATIVE); PROTEIN,URINE 30 mg/dL (NEGATIVE); UROBILINOGEN,URINE 0.2 mg/dL (0.2-1.0)
[2021-05-04 16:14] LABS: BACTERIA,URINE Moderate /HPF (None Seen); SQUAMOUS EPITHELIAL CELL,UR Rare /HPF (0-2); WBC,URINE >100 /HPF (0-1)
[2021-05-04 16:34] LABS: BASOPHILS % (AUTO) 0.8 % (0.0-5.0); EOSINOPHILS % (AUTO) 3.4 % (0.0-8.0); HEMATOCRIT 35.9 % (42-54); LYMPHOCYTES % (AUTO) 21.6 % (21.0-51.0); MEAN CORPUSCULAR HEMOGLOBIN 30.7 pg (27.0-33.0); MEAN CORPUSCULAR HGB CONC 32.6 g/dL (32.0-36.0); MEAN CORPUSCULAR VOLUME 94.2 fL (79-99); MONOCYTES % (AUTO) 15.2 % (3.0-13.0); NEUTROPHILS % (AUTO) 57.7 % (40.0-77.0); PLATELET COUNT (AUTO) 118 K/uL (130-400); RED BLOOD CELL COUNT(AUTO) 3.81 MIL/uL (4.50-6.20); RED CELL DISTRIBUTION WIDTH 13.5 % (11.0-15.5); WHITE BLOOD COUNT (AUTO) 3.9 K/uL (4.8-10.8)
[2021-05-04 16:48] LABS: CREATININE 1.2 mg/dL (0.5-1.5); POTASSIUM 4.3 mmol/L (3.5-5.1)
[2021-05-04 16:53] LABS: ALBUMIN 3.7 g/dL (3.5-5.0); BILIRUBIN,TOTAL 0.3 mg/dL (0.2-1.0); TOTAL PROTEIN, SERUM 7.1 g/dL (6.0-8.3)
[2021-05-04 16:54] LABS: B-TYPE NATRIURETIC PEPTIDE 9 pg/mL (0-100)
[2021-05-04] MEDS ORDERED: LEVOFLOXACIN 500 MG/D5W 100 ML 100 ML IV STA (17:39)
[2021-05-04] MEDS ORDERED: LEVO750T46 PO (18:19)
[2021-05-04 19:05] VITALS: BP 102/72
== END 2021-05-04 19:09 | disposition home or self-care (01) ==
LOC: EDH 14:56
DX: N39.0 Urinary tract infection, site not specified (principal); I11.0 Hypertensive heart disease with heart failure; I50.9 Heart failure, unspecified; E78.00 Pure hypercholesterolemia, unspecified; I25.10 Atherosclerotic heart disease of native coronary artery without angina pectoris; E11.9 Type 2 diabetes mellitus without complications; Z79.899 Other long term (current) drug therapy; Z88.0 Allergy status to penicillin; Z91.81 History of falling
CPT/HCPCS: 36415; 71045; 80053; 81001; 83880; 84484; 85025; 87077; 87088; 87186; 93005; 96365; 99285; J1956

== ENCOUNTER 2021-07-19 12:17 | Emergency (ER) | payer OTHER ==
[~2021-07-19] VITALS: Ht 185.4 cm; Wt 109.8 kg
[~2021-07-19 12:17] MED LIST changes: +ACET-66 PO; +ARIP10TA54 PO; -DIVA-78 PO; -FURO20TA4 PO; +FURO40TA5 PO; -LISI10TA24 PO; +LISI20TA24 PO; -LORA1TAB3 PO; +MELA10TA7 PO; +MEMA5TAB42 PO; -METO25TA6 PO; +OLAN5TAB76 PO; -RIVA20TA PO; -TAMS0.4C32 PO; +TERB250T89 PO; +TRAZ-187 PO; -ZOLP10TA2 PO
[2021-07-19 13:01] LABS: BASOPHILS % (AUTO) 0.6 % (0.0-5.0); EOSINOPHILS % (AUTO) 1.6 % (0.0-8.0); HEMATOCRIT 37.5 % (42-54); LYMPHOCYTES % (AUTO) 12.1 % (21.0-51.0); MEAN CORPUSCULAR HEMOGLOBIN 31.3 pg (27.0-33.0); MEAN CORPUSCULAR HGB CONC 33.3 g/dL (32.0-36.0); MONOCYTES % (AUTO) 13.1 % (3.0-13.0); NEUTROPHILS % (AUTO) 71.6 % (40.0-77.0); PLATELET COUNT (AUTO) 115 K/uL (130-400); RED BLOOD CELL COUNT(AUTO) 3.99 MIL/uL (4.50-6.20); RED CELL DISTRIBUTION WIDTH 13.7 % (11.0-15.5); WHITE BLOOD COUNT (AUTO) 4.9 K/uL (4.8-10.8)
[2021-07-19 13:15] LABS: CREATININE 0.9 mg/dL (0.5-1.5); POTASSIUM 4.2 mmol/L (3.5-5.1)
[2021-07-19 13:18] LABS: ALBUMIN 3.8 g/dL (3.5-5.0); BILIRUBIN,TOTAL 0.3 mg/dL (0.2-1.0)
[2021-07-19] MEDS ORDERED: 0.9%NACL 1000ML 1,000 ML IV ONE ×2 (13:30→14:14)
[2021-07-19 13:47] LABS: PROTHROMBIN TIME 10.9 SEC (9.6-11.6)
[2021-07-19 14:17] VITALS: BP 115/58
== END 2021-07-19 14:54 | disposition home or self-care (01) ==
LOC: EDH 12:17
DX: K59.00 Constipation, unspecified (principal); R42 Dizziness and giddiness; E03.9 Hypothyroidism, unspecified; E78.00 Pure hypercholesterolemia, unspecified; I10 Essential (primary) hypertension; Z79.899 Other long term (current) drug therapy; Z85.46 Personal history of malignant neoplasm of prostate; Z88.0 Allergy status to penicillin
CPT/HCPCS: 36415; 80053; 82270; 84484; 85025; 85610; 86850; 86900; 86901; 93005; 99284; J7030